=== PATIENT | female | born 2000 | race Hispanic/Latino ===

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

== ENCOUNTER → 2023-02-12 | Outpatient (CLI) | payer MEDICAID | END | disposition home or self-care (01) | LOC: RAH 14:50 | PROVIDERS: ATTEND Family Medicine | DX: R20.9 Unspecified disturbances of skin sensation (principal) | CPT/HCPCS: 93930 ==